=== PATIENT | female | born 1955 | race Two or more races ===

== ENCOUNTER → 2024-04-22 | Outpatient (CLI) | payer OTHER, MEDICAID | END | disposition home or self-care (01) | LOC: LAB 12:56 | PROVIDERS: ATTEND Urology | DX: N39.0 Urinary tract infection, site not specified (principal) | CPT/HCPCS: 87086 ==

== ENCOUNTER → 2025-01-16 | Outpatient (CLI) | payer OTHER, MEDICAID ==
[~2025-01-16] VITALS: Ht 154.9 cm; Wt 65.3 kg
[~2025-01-16] MED LIST: CIPROFLOXACIN 400MG/200ML 200 ML IV ONE; DIPH1TAB30 PO; IBUP-1453 PO
[2025-01-16 10:47] LABS: Hematocrit 42.8 % (36.0-46.0); Hemoglobin 14.3 g/dL (12.2-16.2); Mean Corpuscular Hemoglobin 31.1 pg (28.0-32.0); Mean Corpuscular Volume 92.8 fL (80.0-100.0); Nucleated Red Blood Cells % 0.1 %
[2025-01-16 10:58] LABS: Urine Protein, UAD Negative (Negative)
[2025-01-16 11:01] LABS: INR 1.15 (0.9-1.15); Partial Thromboplastin Time 28.8 SEC (24.5-34.5); Prothrombin Time 12.0 sec (9.3-11.8)
[2025-01-16 11:21] LABS: Alanine Aminotransferase 16 U/L (7-40); Albumin 4.5 g/dL (3.2-4.8); Alkaline Phosphatase 106 U/L (46-116); Anion Gap 9 (5-15); BUN/Creatinine Ratio 19.4 (10.0-20.0); Bilirubin, Total 0.8 mg/dL (0.2-1.0); Blood Urea Nitrogen 13 mg/dL (9-23); Calcium 9.2 mg/dL (8.7-10.4); Carbon Dioxide 28 mmol/L (20-31); Chloride 105 mmol/L (98-107); Potassium 4.1 mmol/L (3.5-5.1); Sodium 142 mmol/L (136-145); Total Protein 8.0 g/dL (5.7-8.2)
[2025-01-16 11:24] LABS: Glucose 113 mg/dL (74-106)
== END | disposition home or self-care (01) ==
LOC: LAB 10:23 → EDSTATUS 01-20 14:53
PROVIDERS: ATTEND Urology
DX: Z01.812 Encounter for preprocedural laboratory examination (principal); N20.0 Calculus of kidney
CPT/HCPCS: 36415; 80053; 81001; 85025; 85610; 85730; 87086